=== PATIENT | female | born 1955 | race African-American/Black ===

== ENCOUNTER 2020-01-15 11:29 | Inpatient (IN) | payer MEDICARE, OTHER ==
[~2020-01-15] VITALS: Ht 170.2 cm; Wt 58.2 kg
[2020-01-15] MEDS ORDERED: PANTOPRAZOLE 80 MG in SODIUM CHLORIDE 0.9% 100 ML IV STA (11:55)
[2020-01-15] MEDS ORDERED: PANTOPRAZOLE SODIUM 40 MG/VIAL IV STA (11:55)
[2020-01-15] MEDS ORDERED: SODIUM CHLORIDE 0.9% 1000ML BAG (SEPSIS BOLUS) IV ONE (12:00)
[2020-01-15 12:29] LABS: MEAN CORPUSCULAR HEMOGLOBIN 31.8 pg (28.0-32.0); MEAN CORPUSCULAR VOLUME 108.7 fL (81.0-99.0); MEAN PLATELET VOLUME 9.7 fl (7.4-10.4); PLATELET 166 x1000/uL (130-400); RED BLOOD CELL COUNT 0.71 mill/uL (4.2-5.4); RED CELL DISTRIBUTION WIDTH 18.8 % (11.6-14.6)
[2020-01-15 12:38] LABS: CHLORIDE 119 mEq/L (98-107); HEMATOCRIT. 7.7 % (36.0-48.0); HEMOGLOBIN. 2.2 g/dL (12.0-16.0); INR 1.1; PROTHROMBIN TIME 12.2 sec (9.6-11.0)
[2020-01-15 12:57] LABS: NUCLEATED RED BLOOD CELLS 6 /100 WBC; PLATELET ESTIMATE NORMAL
[2020-01-15 13:13] LABS: CLARITY URINE TURBID (CLEAR); COLOR URINE YELLOW (YELLOW); KETONES URINE NEGATIVE (NEGATIVE); LEUKOCYTE ESTERASE URINE 3+ (NEGATIVE); NITRITE URINE NEGATIVE (NEGATIVE); OCCULT BLOOD URINE 3+ (NEGATIVE); PROTEIN URINE 2+ (NEGATIVE); SPECIFIC GRAVITY URINE 1.014 (1.005-1.030); UROBILINOGEN URINE 0.2 E.U./dL (0.2-1.0)
[2020-01-15] MEDS ORDERED: CALCIUM CHLORIDE 1GM/10ML SYR IV SCH (14:00)
[2020-01-15] MEDS ORDERED: DEXTROSE 50% WATER 50ML SYRINGE IV SCH (14:00)
[2020-01-15] MEDS ORDERED: INSULIN REGULAR (HUMULIN R) 300UNITS/3ML IV SCH (14:00)
[2020-01-15] MEDS ORDERED: PIPERACILLIN/TAZ 3.375G PREMIX 50 ML IV SCH (14:00)
[2020-01-15] MEDS ORDERED: SODIUM BICARBONATE 8.4% 1 MEQ/ML 50ML SYR IV SCH (14:00)
[2020-01-15] MEDS ORDERED: DOCUSATE SODIUM 100MG CAPSULE PO PRN (14:15)
[2020-01-15] MEDS ORDERED: MORPHINE SULFATE 2 MG/ML CPJ (NOT FOR IM USE) IV PRN (14:15)
[2020-01-15] MEDS ORDERED: ONDANSETRON HCL 4MG/2ML INJ IV PRN (14:15)
[2020-01-15] MEDS ORDERED: ACETAMINOPHEN 325MG TABLET PO PRN (14:15)
[2020-01-15] MEDS ORDERED: GUAIFENESIN 200MG/10ML SUGAR FREE UDC PO PRN (14:15)
[2020-01-15] MEDS ORDERED: MAGNESIUM/ALUMINUM HYDROXIDE/SIMETHICONE 30ML UDC PO PRN (14:15)
[2020-01-15] MEDS ORDERED: DIPHENHYDRAMINE 50MG/ML VIAL IV PRN (14:15)
[2020-01-15] MEDS ORDERED: IPRATROPIUM/ALBUTEROL 0.5-3(2.5)MG/3ML NEB NEB PRN (14:15)
[2020-01-15] MEDS ORDERED: LORAZEPAM 2MG/ML CPJ IV PRN (14:15)
[2020-01-15] MEDS ORDERED: HYDROCODONE/ACETAMINOPHEN 5/325MG TABLET PO PRN (14:15)
[2020-01-15 15:25] LABS: BG BASE EXCESS -12.3 mmol/L (-2.0-2.0); BG CARBOXYHEMOGLOBIN 0.1 % (0.5-1.5); BG DEOXYHEMOGLOBIN 2.6 % (0.0-5.0); BG HCO3 ACT 13.4 mmol/L (22.0-26.0); BG METHEMOGLOBIN 0.3 % (0.0-1.5); BG OXYGEN SATURATION 97.4 % (92.0-98.5); BG PCO2 29.7 mmHg (35.0-45.0); BG PH 7.273 (7.350-7.450); BG PO2 113.6 mmHg (75.0-100.0); BG SAMPLE SITE RIGHT RADIAL; BG TOTAL HEMOGLOBIN 6.8 g/dL (12.0-18.0); BG VENT MODE NASAL CANNULA
[2020-01-15] MEDS ORDERED: DEXT 5%/0.45% NACL 1000ML 1,000 ML IV SCH (17:51)
[2020-01-15] MEDS ORDERED: NA PHOS,M-B/NA PHOS,DI-BA ENEMA 118ML PR PRN (18:04)
[2020-01-15 22:02] LABS: HEMATOCRIT 35.9 % (36.0-48.0); HEMOGLOBIN 11.9 g/dL (12.0-16.0); MEAN CORPUSCULAR HEMOGLOBIN 30.9 pg (28.0-32.0); PLATELET 82 x1000/uL (130-400); RED BLOOD CELL COUNT 3.86 mill/uL (4.2-5.4); RED CELL DISTRIBUTION WIDTH 14.8 % (11.6-14.6)
[2020-01-16] MEDS: CLONIDINE 0.1MG TABLET PO PRN ×3 (01:21→23:38)
[2020-01-16 04:19] LABS: HEMATOCRIT. 30.3 % (36.0-48.0); HEMOGLOBIN. 10.3 g/dL (12.0-16.0); MEAN CORPUSCULAR HEMOGLOBIN 30.7 pg (28.0-32.0); MEAN CORPUSCULAR VOLUME 90.3 fL (81.0-99.0); PLATELET 79 x1000/uL (130-400); RED BLOOD CELL COUNT 3.35 mill/uL (4.2-5.4); RED CELL DISTRIBUTION WIDTH 15.3 % (11.6-14.6)
[2020-01-16 04:27] LABS: CHLORIDE 124 mEq/L (98-107)
[2020-01-16 04:37] LABS: HDL CHOLESTEROL 21 mg/dL (40-59); LDL CHOLESTEROL 34 mg/dL (5-100)
[2020-01-16 04:39] LABS: T4 FREE 0.69 ng/dL (0.76-1.46)
[2020-01-16] MEDS ORDERED: ENOXAPARIN 60MG/0.6ML SYR SUBCUT ONE (05:00)
[2020-01-16] MEDS ORDERED: ASPIRIN 325MG TABLET PO NR (05:00)
[2020-01-16] MEDS ORDERED: SODIUM POLYSTYRENE SULFONATE 15 G/60 ML BOT PO NR (05:17)
[2020-01-16] MEDS ORDERED: SODIUM BICARBONATE 8.4% 1 MEQ/ML 50ML SYR IV NR (05:17)
[2020-01-16] MEDS ORDERED: INSULIN REGULAR (HUMULIN R) 300UNITS/3ML IV NR (05:17)
[2020-01-16] MEDS ORDERED: DEXTROSE 50% WATER 50ML SYRINGE IV NR (05:17)
[2020-01-16 06:59] LABS: NUCLEATED RED BLOOD CELLS 3 /100 WBC; PLATELET ESTIMATE DECREASED
[2020-01-16] MEDS ORDERED: SODIUM BICARBONATE 100 MEQ in DEXTROSE 5% WATER 1,000 ML IV SCH ×2 (08:00→23:00)
[2020-01-16] MEDS: PANTOPRAZOLE 40MG DR TABLET PO SCH ×2 (08:32→21:11)
[2020-01-16] MEDS: LEVOTHYROXINE SODIUM 50MCG TABLET PO SCH (08:32)
[2020-01-16 09:08] LABS: BG BASE EXCESS -10.1 mmol/L (-2.0-2.0); BG CARBOXYHEMOGLOBIN 0.9 % (0.5-1.5); BG FRACTION INSPIRED OXYGEN 32; BG HCO3 ACT 13.5 mmol/L (22.0-26.0); BG METHEMOGLOBIN 0.7 % (0.0-1.5); BG OXYHEMOGLOBIN 96.4 % (94.0-97.0); BG PCO2 25.3 mmHg (35.0-45.0); BG PH 7.346 (7.350-7.450); BG PO2 142.1 mmHg (75.0-100.0); BG SAMPLE SITE RIGHT RADIAL; BG TOTAL HEMOGLOBIN 6.4 g/dL (12.0-18.0); BG VENT MODE NASAL CANNULA
[2020-01-16 12:25] VITALS: BP 166/83
[2020-01-16 13:04] VITALS: BP 163/85
[2020-01-16 14:00] VITALS: BP 176/61
[2020-01-16] MEDS ORDERED: AMLO5TAB4 PO (15:35)
[2020-01-16] MEDS ORDERED: TELM20TA8 PO (15:35)
[2020-01-16] MEDS ORDERED: PRED25PO13 PO (15:40)
[2020-01-16 18:00] VITALS: BP 134/72
[2020-01-16 20:00] VITALS: BP 182/86
[2020-01-16] MEDS: ATORVASTATIN CALCIUM 40MG TABLET PO SCH ×2 (21:00→21:11)
[2020-01-16 22:00] VITALS: BP 187/91
[2020-01-17] VITALS (11 sets, daily range): BP systolic 147–190; BP diastolic 74–93
[2020-01-17] MEDS: SODIUM BICARBONATE 100 MEQ in DEXTROSE 5% WATER 1,000 ML IV SCH ×2 (02:02→21:10)
[2020-01-17] MEDS: CLONIDINE 0.1MG TABLET PO PRN (05:09)
[2020-01-17] MEDS: PANTOPRAZOLE 40MG DR TABLET PO SCH (08:06)
[2020-01-17] MEDS: LEVOTHYROXINE SODIUM 50MCG TABLET PO SCH (08:06)
[2020-01-17 10:27] LABS: BASOPHILS % 0.6 % (0.0-2.0); EOSINOPHILS % 0.5 % (0.0-5.0); HEMATOCRIT. 25.4 % (36.0-48.0); HEMOGLOBIN. 8.8 g/dL (12.0-16.0); LYMPHOCYTES % 7.2 % (20.0-50.0); MEAN CORPUSCULAR HEMOGLOBIN 31.4 pg (28.0-32.0); MEAN CORPUSCULAR VOLUME 90.6 fL (81.0-99.0); MEAN PLATELET VOLUME 9.2 fl (7.4-10.4); MONOCYTES % 5.3 % (2.0-8.0); NEUTROPHILS % 86.4 % (40.0-76.0); PLATELET 56 x1000/uL (130-400); RED BLOOD CELL COUNT 2.81 mill/uL (4.2-5.4); RED CELL DISTRIBUTION WIDTH 16.2 % (11.6-14.6)
[2020-01-17 17:12] LABS: CREATINE KINASE 69 IU/L (26-192)
[2020-01-17] MEDS: ATORVASTATIN CALCIUM 40MG TABLET PO SCH (21:00)
[2020-01-17] MEDS: PANTOPRAZOLE SODIUM 40 MG/VIAL IV SCH (21:12)
[2020-01-18] VITALS (21 sets, daily range): BP systolic 98–179; BP diastolic 50–75
[2020-01-18 08:25] LABS: PROTHROMBIN TIME 10.7 sec (9.6-11.0)
[2020-01-18 08:27] LABS: HEMATOCRIT. 21.5 % (36.0-48.0); HEMOGLOBIN. 7.4 g/dL (12.0-16.0); MEAN CORPUSCULAR HEMOGLOBIN 31.4 pg (28.0-32.0); MEAN CORPUSCULAR VOLUME 91.3 fL (81.0-99.0); RED BLOOD CELL COUNT 2.36 mill/uL (4.2-5.4); RED CELL DISTRIBUTION WIDTH 15.9 % (11.6-14.6)
[2020-01-18 08:46] LABS: PLATELET 46 x1000/uL (130-400)
[2020-01-18] MEDS: LEVOTHYROXINE SODIUM 50MCG TABLET PO SCH (08:52)
[2020-01-18] MEDS: PANTOPRAZOLE SODIUM 40 MG/VIAL IV SCH ×2 (08:52→20:34)
[2020-01-18 15:58] LABS: PLATELET ESTIMATE MARKEDLY DECREASED
[2020-01-18] MEDS: SUCRALFATE 1G TABLET PO SCH ×2 (19:03→20:34)
[2020-01-18 19:52] LABS: HEMATOCRIT 26.3 % (36.0-48.0); HEMOGLOBIN 8.8 g/dL (12.0-16.0)
[2020-01-18] MEDS: ATORVASTATIN CALCIUM 40MG TABLET PO SCH (20:35)
[2020-01-19] VITALS (14 sets, daily range): BP systolic 104–158; BP diastolic 27–93
[2020-01-19] MEDS: SUCRALFATE 1G TABLET PO SCH ×4 (06:31→20:37)
[2020-01-19] MEDS: LEVOTHYROXINE SODIUM 50MCG TABLET PO SCH (06:31)
[2020-01-19 07:41] LABS: HEMATOCRIT. 23.2 % (36.0-48.0); HEMOGLOBIN. 8.2 g/dL (12.0-16.0); MEAN CORPUSCULAR VOLUME 88.2 fL (81.0-99.0); MEAN PLATELET VOLUME 9.4 fl (7.4-10.4); PLATELET 56 x1000/uL (130-400); RED BLOOD CELL COUNT 2.63 mill/uL (4.2-5.4)
[2020-01-19 07:45] LABS: HEPATITIS B SURFACE ANTIGEN NEGATIVE
[2020-01-19 07:52] LABS: FOLIC ACID (FOLATE) SERUM 19.8 ng/mL (>5.38)
[2020-01-19 08:15] LABS: HEPATITIS A AB IGM NEGATIVE (NEGATIVE)
[2020-01-19] MEDS: CYANOCOBALAMIN 1000MCG TABLET PO SCH (08:34)
[2020-01-19] MEDS ORDERED: MIDAZOLAM HCL 5 MG/5 ML VIAL ONE (09:34)
[2020-01-19] MEDS ORDERED: FENTANYL CITRATE/PF 50MCG/ML 2ML VIAL ONE (09:34)
[2020-01-19] MEDS ORDERED: MIDAZOLAM HCL 5 MG/5 ML VIAL IV SCH (09:46)
[2020-01-19] MEDS ORDERED: FENTANYL CITRATE/PF 50MCG/ML 2ML VIAL IV SCH (09:47)
[2020-01-19] MEDS ORDERED: SIMETHICONE 40 MG/0.6 ML 30ML ONE (09:57)
[2020-01-19] MEDS ORDERED: OMEPRAZOLE 20MG CAPSULE EXTENDED RELEASE PO SCH (10:30)
[2020-01-19 11:55] LABS: PLATELET ESTIMATE DECREASED
[2020-01-19] MEDS: DEXTROSE 5% WATER 1,000 ML IV SCH (14:46)
[2020-01-19] MEDS: CLONIDINE 0.1MG TABLET PO PRN (18:54)
[2020-01-19] MEDS: ATORVASTATIN CALCIUM 40MG TABLET PO SCH (20:36)
[2020-01-20] VITALS (7 sets, daily range): BP systolic 118–161; BP diastolic 65–92
[2020-01-20] MEDS: DEXTROSE 5% WATER 1,000 ML IV SCH ×2 (00:56→21:00)
[2020-01-20] MEDS: SUCRALFATE 1G TABLET PO SCH ×4 (06:31→20:58)
[2020-01-20] MEDS: OMEPRAZOLE 20MG CAPSULE EXTENDED RELEASE PO SCH (06:31)
[2020-01-20] MEDS: LEVOTHYROXINE SODIUM 50MCG TABLET PO SCH (06:31)
[2020-01-20 06:40] LABS: BASOPHILS % 0.6 % (0.0-2.0); EOSINOPHILS % 1.1 % (0.0-5.0); HEMATOCRIT. 21.2 % (36.0-48.0); HEMOGLOBIN. 7.4 g/dL (12.0-16.0); LYMPHOCYTES % 12.9 % (20.0-50.0); MEAN CORPUSCULAR VOLUME 89.2 fL (81.0-99.0); MONOCYTES % 6.3 % (2.0-8.0); NEUTROPHILS % 79.1 % (40.0-76.0); PLATELET 62 x1000/uL (130-400); RED BLOOD CELL COUNT 2.38 mill/uL (4.2-5.4); RED CELL DISTRIBUTION WIDTH 15.3 % (11.6-14.6)
[2020-01-20] MEDS: CYANOCOBALAMIN 1000MCG TABLET PO SCH (08:47)
[2020-01-20] MEDS: ATORVASTATIN CALCIUM 40MG TABLET PO SCH (21:00)
[2020-01-21] VITALS (15 sets, daily range): BP systolic 134–162; BP diastolic 65–89
[2020-01-21 05:09] LABS: ANA IFA Negative (.)
[2020-01-21] MEDS: LEVOTHYROXINE SODIUM 50MCG TABLET PO SCH (06:30)
[2020-01-21] MEDS: OMEPRAZOLE 20MG CAPSULE EXTENDED RELEASE PO SCH (06:30)
[2020-01-21] MEDS: SUCRALFATE 1G TABLET PO SCH ×3 (06:30→21:00)
[2020-01-21 07:26] LABS: BASOPHILS % 0.5 % (0.0-2.0); EOSINOPHILS % 0.9 % (0.0-5.0); HEMOGLOBIN. 7.1 g/dL (12.0-16.0); LYMPHOCYTES % 13.9 % (20.0-50.0); MEAN CORPUSCULAR HEMOGLOBIN 30.9 pg (28.0-32.0); MEAN CORPUSCULAR VOLUME 89.7 fL (81.0-99.0); MEAN PLATELET VOLUME 9.9 fl (7.4-10.4); MONOCYTES % 9.9 % (2.0-8.0); NEUTROPHILS % 74.8 % (40.0-76.0); PLATELET 73 x1000/uL (130-400); RED CELL DISTRIBUTION WIDTH 14.8 % (11.6-14.6)
[2020-01-21 08:05] LABS: HEMATOCRIT. 20.7 % (36.0-48.0)
[2020-01-21] MEDS: CYANOCOBALAMIN 1000MCG TABLET PO SCH (08:52)
[2020-01-21] MEDS: CLONIDINE 0.1MG TABLET PO PRN (08:57)
[2020-01-21 17:23] LABS: BASOPHILS % 0.5 % (0.0-2.0); EOSINOPHILS % 0.8 % (0.0-5.0); HEMATOCRIT. 26.1 % (36.0-48.0); LYMPHOCYTES % 16.5 % (20.0-50.0); MEAN CORPUSCULAR HEMOGLOBIN 30.8 pg (28.0-32.0); MEAN CORPUSCULAR VOLUME 89.6 fL (81.0-99.0); MEAN PLATELET VOLUME 9.3 fl (7.4-10.4); NEUTROPHILS % 69.2 % (40.0-76.0); PLATELET 75 x1000/uL (130-400); RED BLOOD CELL COUNT 2.92 mill/uL (4.2-5.4); RED CELL DISTRIBUTION WIDTH 14.8 % (11.6-14.6)
[2020-01-21 17:29] LABS: INR 0.9
[2020-01-21] MEDS: ATORVASTATIN CALCIUM 40MG TABLET PO SCH (23:04)
[2020-01-22] VITALS (12 sets, daily range): BP systolic 110–169; BP diastolic 51–98
[2020-01-22] MEDS: LEVOTHYROXINE SODIUM 50MCG TABLET PO SCH (06:27)
[2020-01-22] MEDS: SUCRALFATE 1G TABLET PO SCH ×4 (06:31→20:36)
[2020-01-22] MEDS: OMEPRAZOLE 20MG CAPSULE EXTENDED RELEASE PO SCH (06:32)
[2020-01-22] MEDS: CYANOCOBALAMIN 1000MCG TABLET PO SCH (08:33)
[2020-01-22 09:24] LABS: BASOPHILS % 0.2 % (0.0-2.0); HEMOGLOBIN. 8.6 g/dL (12.0-16.0); LYMPHOCYTES % 12.3 % (20.0-50.0); MEAN CORPUSCULAR HEMOGLOBIN 30.5 pg (28.0-32.0); MEAN CORPUSCULAR VOLUME 89.1 fL (81.0-99.0); MEAN PLATELET VOLUME 10.3 fl (7.4-10.4); MONOCYTES % 9.9 % (2.0-8.0); NEUTROPHILS % 76.6 % (40.0-76.0); PLATELET 87 x1000/uL (130-400); RED BLOOD CELL COUNT 2.81 mill/uL (4.2-5.4); RED CELL DISTRIBUTION WIDTH 14.6 % (11.6-14.6)
[2020-01-22] MEDS: CLONIDINE 0.1MG TABLET PO PRN (10:27)
[2020-01-22] MEDS ORDERED: AMLODIPINE 5MG TABLET PO NR (12:45)
[2020-01-22] MEDS: AMLODIPINE 5MG TABLET PO SCH (20:36)
[2020-01-22] MEDS: ATORVASTATIN CALCIUM 40MG TABLET PO SCH (20:39)
[2020-01-23] VITALS (10 sets, daily range): BP systolic 118–172; BP diastolic 57–96
[2020-01-23] MEDS: LEVOTHYROXINE SODIUM 50MCG TABLET PO SCH (06:26)
[2020-01-23] MEDS: OMEPRAZOLE 20MG CAPSULE EXTENDED RELEASE PO SCH (06:26)
[2020-01-23] MEDS: SUCRALFATE 1G TABLET PO SCH ×3 (06:27→17:34)
[2020-01-23 06:36] LABS: BASOPHILS % 0.2 % (0.0-2.0); EOSINOPHILS % 1.3 % (0.0-5.0); HEMATOCRIT. 25.1 % (36.0-48.0); HEMOGLOBIN. 8.8 g/dL (12.0-16.0); LYMPHOCYTES % 15.4 % (20.0-50.0); MEAN CORPUSCULAR HEMOGLOBIN 31.2 pg (28.0-32.0); MEAN CORPUSCULAR VOLUME 88.8 fL (81.0-99.0); MEAN PLATELET VOLUME 9.7 fl (7.4-10.4); MONOCYTES % 12.6 % (2.0-8.0); NEUTROPHILS % 70.5 % (40.0-76.0); PLATELET 103 x1000/uL (130-400); RED BLOOD CELL COUNT 2.82 mill/uL (4.2-5.4); RED CELL DISTRIBUTION WIDTH 14.8 % (11.6-14.6)
[2020-01-23] MEDS: AMLODIPINE 5MG TABLET PO SCH (08:14)
[2020-01-23] MEDS ORDERED: HYDRALAZINE HCL 50MG TABLET PO SCH (21:00)
== END 2020-01-23 18:26 | disposition home health service (06) | DRG 871 ==
LOC: ER 11:45 → 5EST 13:05 → EDBEDREQ 13:11 → EDBEDREQSVC 13:11 → ENRESERV 01-16 11:50 → 5EST 01-17 09:26 → 3WST 01-21 11:33
PROVIDERS: ADMIT Internal Medicine; ATTEND Internal Medicine
PROC: 30233N1 Transfusion of Nonautologous Red Blood Cells into Peripheral Vein, Percutaneous Approach (ICD-10-PCS; 2020-01-15)
PROC: 30233R1 Transfusion of Nonautologous Platelets into Peripheral Vein, Percutaneous Approach (ICD-10-PCS; 2020-01-18)
PROC: 0DB68ZX Excision of Stomach, Via Natural or Artificial Opening Endoscopic, Diagnostic (ICD-10-PCS; principal; 2020-01-19)
DX: A41.9 Sepsis, unspecified organism (principal); N18.6 End stage renal disease; E43 Unspecified severe protein-calorie malnutrition; K26.4 Chronic or unspecified duodenal ulcer with hemorrhage; N17.0 Acute kidney failure with tubular necrosis; I21.A1 Myocardial infarction type 2; D62 Acute posthemorrhagic anemia; G93.40 Encephalopathy, unspecified; E87.2 Acidosis; N13.6 Pyonephrosis; I12.0 Hypertensive chronic kidney disease with stage 5 chronic kidney disease or end stage renal disease; E87.0 Hyperosmolality and hypernatremia; E86.0 Dehydration; M32.9 Systemic lupus erythematosus, unspecified; E87.5 Hyperkalemia; D69.6 Thrombocytopenia, unspecified; D53.9 Nutritional anemia, unspecified; E03.9 Hypothyroidism, unspecified; E78.5 Hyperlipidemia, unspecified; I25.10 Atherosclerotic heart disease of native coronary artery without angina pectoris; E11.22 Type 2 diabetes mellitus with diabetic chronic kidney disease; K75.9 Inflammatory liver disease, unspecified; M19.90 Unspecified osteoarthritis, unspecified site; Z53.29 Procedure and treatment not carried out because of patient's decision for other reasons; R59.0 Localized enlarged lymph nodes; K57.90 Diverticulosis of intestine, part unspecified, without perforation or abscess without bleeding; M06.9 Rheumatoid arthritis, unspecified; Z87.442 Personal history of urinary calculi; Z79.52 Long term (current) use of systemic steroids; Z68.20 Body mass index [BMI] 20.0-20.9, adult
CPT/HCPCS: 36415; 36600; 71045; 74176; 76700; 76770; 80048; 80053; 80061; 80076; 81003; 82150; 82270; 82375; 82550; 82575; 82607; 82728; 82746; 82805; 83010; 83036; 83540; 83550; 83605; 83615; 83880; 84132; 84145; 84439; 84443; 84484; 85014; 85018; 85025; 85027; 85384; 86256; 86677; 86705; 86709; 86803; 86850; 86880; 86900; 86920; 87340; 88305; 88312; 88313; 93005; 93306; 97116; 97162; 97530; 99291; C9113; J1815; J2250; J2543; J3010; J3490; J7030; J7050; J7070; P9016; P9034

== ENCOUNTER 2020-03-27 14:11 | Inpatient (IN) | payer MEDICARE, OTHER ==
[~2020-03-27] VITALS: Ht 160 cm; Wt 56.8 kg
[~2020-03-27 14:11] MED LIST: AMLO5TAB4 PO; PRED25PO13 PO; TELM20TA8 PO
[2020-03-27] MEDS ORDERED: SODIUM CHLORIDE 0.9% 1,000 ML IV ONE (14:58)
[2020-03-27] MEDS ORDERED: MORPHINE SULFATE 4 MG/ML CPJ (NOT FOR IM USE) IV STA (14:58)
[2020-03-27] MEDS ORDERED: ONDANSETRON HCL 4MG/2ML INJ IV STA (14:58)
[2020-03-27 15:54] LABS: HEMATOCRIT. 28.8 % (36.0-48.0); HEMOGLOBIN. 9.2 g/dL (12.0-16.0); MEAN CORPUSCULAR HEMOGLOBIN 28.5 pg (28.0-32.0); MEAN PLATELET VOLUME 8.7 fl (7.4-10.4); PLATELET 213 x1000/uL (130-400); RED BLOOD CELL COUNT 3.24 mill/uL (4.2-5.4); RED CELL DISTRIBUTION WIDTH 16.3 % (11.6-14.6)
[2020-03-27 15:58] LABS: CHLORIDE 92 mEq/L (98-107)
[2020-03-27 16:02] LABS: PARTIAL THROMBOPLASTIN TIME 37.9 sec (23.4-31.0); PROTHROMBIN TIME 10.9 sec (9.6-11.0)
[2020-03-27 16:24] LABS: PLATELET ESTIMATE NORMAL
[2020-03-27] MEDS ORDERED: METRONIDAZOLE 500 MG PREMIX 100 ML IV ONE (16:45)
[2020-03-27] MEDS ORDERED: LEVOFLOXACIN 750MG PREMIX 150 ML IV ONE (16:45)
[2020-03-27] MEDS ORDERED: CALCIUM GLUCONATE 1,000 MG in DEXTROSE 5% WATER 50 ML IV ONE (17:15)
[2020-03-27] MEDS ORDERED: ALBUTEROL (0.083%) 2.5MG/3ML NEB HHN ONE (17:15)
[2020-03-27] MEDS ORDERED: SODIUM BICARBONATE 8.4% 1 MEQ/ML 50ML SYR IV ONE (17:15)
[2020-03-27] MEDS ORDERED: SODIUM POLYSTYRENE SULFONATE 15 G/60 ML BOT PO ONE (17:15)
[2020-03-27] MEDS ORDERED: DEXTROSE 50% WATER 50ML SYRINGE IV ONE (17:15)
[2020-03-27] MEDS ORDERED: ONDANSETRON HCL 4MG/2ML INJ IV PRN (21:15)
[2020-03-27] MEDS ORDERED: CEFTRIAXONE 1 G PREMIX 50 ML IV SCH (21:15)
[2020-03-27] MEDS ORDERED: SODIUM CHLORIDE 0.9% 1,000 ML IV SCH (21:15)
[2020-03-27] MEDS ORDERED: SODIUM BICARBONATE 150 MEQ in SODIUM CHLORIDE 0.45% 1,000 ML IV SCH (22:00)
[2020-03-27] MEDS ORDERED: PREDNISONE 20MG TABLET PO SCH (22:30)
[2020-03-27 23:00] VITALS: BP 149/71
[2020-03-27] MEDS ORDERED: DEXTROSE 50% WATER 50ML SYRINGE IV PRN (23:15)
[2020-03-27] MEDS: PANTOPRAZOLE SODIUM 40 MG/VIAL IV SCH (23:31)
[2020-03-27] MEDS: SODIUM BICARBONATE 150 MEQ in SODIUM CHLORIDE 0.45% 1,000 ML IV SCH (23:31)
[2020-03-27] MEDS: HYDROCORTISONE SOD SUCCINATE 100 MG/2 ML VIAL IV SCH (23:32)
[2020-03-28] VITALS (21 sets, daily range): BP systolic 127–165; BP diastolic 61–83
[2020-03-28] MEDS: MORPHINE SULFATE 2 MG/ML CPJ (NOT FOR IM USE) IV PRN ×2 (00:31→03:41)
[2020-03-28] MEDS ORDERED: DILTIAZEM HCL 5MG/ML 5ML VIAL IV PRN (04:45)
[2020-03-28] MEDS: METRONIDAZOLE 500 MG PREMIX 100 ML IV SCH ×2 (05:30→18:33)
[2020-03-28] MEDS ORDERED: METRONIDAZOLE 500 MG PREMIX 100 ML IV SCH (06:00)
[2020-03-28 07:24] LABS: CLARITY URINE CLOUDY (CLEAR); COLOR URINE YELLOW (YELLOW); KETONES URINE NEGATIVE (NEGATIVE); LEUKOCYTE ESTERASE URINE 1+ (NEGATIVE); NITRITE URINE NEGATIVE (NEGATIVE); OCCULT BLOOD URINE 2+ (NEGATIVE); PH URINE 5.5 (4.5-8.0); PROTEIN URINE 3+ (NEGATIVE); SPECIFIC GRAVITY URINE 1.015 (1.005-1.030); UROBILINOGEN URINE 0.2 E.U./dL (0.2-1.0)
[2020-03-28 07:43] LABS: MEAN CORPUSCULAR HEMOGLOBIN 29.2 pg (28.0-32.0); MEAN CORPUSCULAR VOLUME 86.4 fL (81.0-99.0); MEAN PLATELET VOLUME 8.6 fl (7.4-10.4); PLATELET 143 x1000/uL (130-400); RED BLOOD CELL COUNT 2.23 mill/uL (4.2-5.4); RED CELL DISTRIBUTION WIDTH 16.4 % (11.6-14.6)
[2020-03-28 08:02] LABS: HEMATOCRIT. 19.2 % (36.0-48.0); HEMOGLOBIN. 6.5 g/dL (12.0-16.0)
[2020-03-28] MEDS ORDERED: CEFTRIAXONE 1,000 MG in DEXTROSE 5% WATER 50 ML IV SCH (09:00)
[2020-03-28] MEDS: SODIUM BICARBONATE 150 MEQ in SODIUM CHLORIDE 0.45% 1,000 ML IV SCH ×2 (09:13→22:32)
[2020-03-28] MEDS: CEFTRIAXONE 1,000 MG in DEXTROSE 5% WATER 50 ML IV SCH (09:14)
[2020-03-28] MEDS: PANTOPRAZOLE SODIUM 40 MG/VIAL IV SCH (09:14)
[2020-03-28 10:29] LABS: T4 FREE 0.96 ng/dL (0.76-1.46)
[2020-03-28 14:14] LABS: PLATELET ESTIMATE NORMAL
[2020-03-28 14:47] LABS: CREATINE KINASE 57 IU/L (26-192)
[2020-03-28 14:48] LABS: CREATINE KINASE MB FRACTION 1.5 ng/mL (0.5-3.6)
[2020-03-29] VITALS (13 sets, daily range): BP systolic 121–152; BP diastolic 56–90
[2020-03-29] MEDS: HYDROCORTISONE SOD SUCCINATE 100 MG/2 ML VIAL IV SCH ×2 (00:37→23:35)
[2020-03-29] MEDS: METRONIDAZOLE 500 MG PREMIX 100 ML IV SCH ×2 (06:06→18:54)
[2020-03-29 07:11] LABS: CREATINE KINASE MB FRACTION 1.1 ng/mL (0.5-3.6)
[2020-03-29] MEDS: PANTOPRAZOLE SODIUM 40 MG/VIAL IV SCH (08:55)
[2020-03-29] MEDS: CEFTRIAXONE 1,000 MG in DEXTROSE 5% WATER 50 ML IV SCH (08:55)
[2020-03-29 10:09] LABS: HEMATOCRIT. 24.9 % (36.0-48.0); HEMOGLOBIN. 8.6 g/dL (12.0-16.0); MEAN CORPUSCULAR HEMOGLOBIN 29.8 pg (28.0-32.0); MEAN CORPUSCULAR VOLUME 86.1 fL (81.0-99.0); MEAN PLATELET VOLUME 8.7 fl (7.4-10.4); PLATELET 159 x1000/uL (130-400); RED CELL DISTRIBUTION WIDTH 16.1 % (11.6-14.6)
[2020-03-29 10:14] LABS: CHLORIDE 97 mEq/L (98-107)
[2020-03-29] MEDS ORDERED: CALCIUM CHLORIDE 1GM/10ML SYR IV NR (11:15)
[2020-03-29] MEDS ORDERED: POTASSIUM CHLORIDE 20MEQ TABLET SR PO NR (11:30)
[2020-03-29] MEDS: SODIUM BICARBONATE 150 MEQ in SODIUM CHLORIDE 0.45% 1,000 ML IV SCH ×2 (11:48→21:00)
[2020-03-29 12:40] LABS: PLATELET ESTIMATE NORMAL
[2020-03-29] MEDS ORDERED: CALCIUM GLUCONATE 100MG/ML 10ML VIAL IV NR (13:00)
[2020-03-30] VITALS (12 sets, daily range): BP systolic 89–160; BP diastolic 24–87
[2020-03-30] MEDS: SODIUM BICARBONATE 150 MEQ in SODIUM CHLORIDE 0.45% 1,000 ML IV SCH ×2 (03:00→16:24)
[2020-03-30] MEDS: METRONIDAZOLE 500 MG PREMIX 100 ML IV SCH ×2 (05:09→17:00)
[2020-03-30 06:26] LABS: HEMATOCRIT. 27.4 % (36.0-48.0); HEMOGLOBIN. 9.3 g/dL (12.0-16.0); MEAN CORPUSCULAR HEMOGLOBIN 29.3 pg (28.0-32.0); MEAN CORPUSCULAR VOLUME 85.7 fL (81.0-99.0); MEAN PLATELET VOLUME 8.7 fl (7.4-10.4); PLATELET 178 x1000/uL (130-400); RED BLOOD CELL COUNT 3.19 mill/uL (4.2-5.4); RED CELL DISTRIBUTION WIDTH 15.8 % (11.6-14.6)
[2020-03-30] MEDS: PANTOPRAZOLE SODIUM 40 MG/VIAL IV SCH (08:33)
[2020-03-30] MEDS: CEFTRIAXONE 1,000 MG in DEXTROSE 5% WATER 50 ML IV SCH (08:35)
[2020-03-30] MEDS ORDERED: DOCUSATE SODIUM 250MG CAPSULE PO PRN (10:00)
[2020-03-30] MEDS ORDERED: POTASSIUM CHLORIDE 20MEQ TABLET SR PO SCH (11:15)
[2020-03-30] MEDS: HYDRALAZINE 20MG/ML VIAL IV PRN (11:26)
[2020-03-30 15:22] LABS: PLATELET ESTIMATE NORMAL
[2020-03-31] VITALS (12 sets, daily range): BP systolic 126–176; BP diastolic 62–111
[2020-03-31] MEDS: HYDROCORTISONE SOD SUCCINATE 100 MG/2 ML VIAL IV SCH ×2 (00:25→22:18)
[2020-03-31] MEDS: HYDRALAZINE 20MG/ML VIAL IV PRN (02:09)
[2020-03-31] MEDS: SODIUM BICARBONATE 150 MEQ in SODIUM CHLORIDE 0.45% 1,000 ML IV SCH ×2 (03:58→10:46)
[2020-03-31] MEDS: METRONIDAZOLE 500 MG PREMIX 100 ML IV SCH ×2 (05:33→17:28)
[2020-03-31 07:13] LABS: HEMOGLOBIN. 9.7 g/dL (12.0-16.0); MEAN CORPUSCULAR HEMOGLOBIN 29.1 pg (28.0-32.0); MEAN CORPUSCULAR VOLUME 86.6 fL (81.0-99.0); MEAN PLATELET VOLUME 8.7 fl (7.4-10.4); PLATELET 175 x1000/uL (130-400); RED BLOOD CELL COUNT 3.35 mill/uL (4.2-5.4); RED CELL DISTRIBUTION WIDTH 16.3 % (11.6-14.6)
[2020-03-31 07:19] LABS: CHLORIDE 92 mEq/L (98-107)
[2020-03-31 08:02] LABS: PHOSPHORUS 10.3 mg/dL (2.5-4.9)
[2020-03-31] MEDS: CEFTRIAXONE 1,000 MG in DEXTROSE 5% WATER 50 ML IV SCH (08:11)
[2020-03-31] MEDS: PANTOPRAZOLE SODIUM 40 MG/VIAL IV SCH (08:11)
[2020-03-31] MEDS ORDERED: POTASSIUM CHLORIDE 20MEQ TABLET SR PO NR (08:51)
[2020-03-31] MEDS: CALCIUM ACETATE 667MG CAPSULE PO SCH ×3 (09:12→17:29)
[2020-03-31] MEDS ORDERED: POTASSIUM CHLORIDE INJ 40 MEQ in DEXT 5% WATER 250 ML IV NR (10:00)
[2020-03-31 14:29] LABS: PLATELET ESTIMATE NORMAL
[2020-04-01] VITALS (12 sets, daily range): BP systolic 137–177; BP diastolic 58–103
[2020-04-01] MEDS: HYDRALAZINE 20MG/ML VIAL IV PRN ×4 (00:09→21:08)
[2020-04-01] MEDS: METRONIDAZOLE 500 MG PREMIX 100 ML IV SCH ×2 (06:08→17:46)
[2020-04-01] MEDS: CEFTRIAXONE 1,000 MG in DEXTROSE 5% WATER 50 ML IV SCH (08:10)
[2020-04-01] MEDS: PANTOPRAZOLE SODIUM 40 MG/VIAL IV SCH (08:10)
[2020-04-01] MEDS: CALCIUM ACETATE 667MG CAPSULE PO SCH ×3 (08:11→17:46)
[2020-04-01 16:09] LABS: HEMATOCRIT. 29.6 % (36.0-48.0); HEMOGLOBIN. 9.7 g/dL (12.0-16.0); MEAN CORPUSCULAR HEMOGLOBIN 29.1 pg (28.0-32.0); MEAN CORPUSCULAR VOLUME 88.9 fL (81.0-99.0); MEAN PLATELET VOLUME 8.6 fl (7.4-10.4); PLATELET 171 x1000/uL (130-400); RED BLOOD CELL COUNT 3.33 mill/uL (4.2-5.4); RED CELL DISTRIBUTION WIDTH 16.5 % (11.6-14.6)
[2020-04-01 18:26] LABS: PLATELET ESTIMATE NORMAL
[2020-04-02] VITALS (13 sets, daily range): BP systolic 132–169; BP diastolic 65–97
[2020-04-02] MEDS: HYDROCORTISONE SOD SUCCINATE 100 MG/2 ML VIAL IV SCH (01:11)
[2020-04-02 06:30] LABS: HEMATOCRIT. 29.8 % (36.0-48.0); HEMOGLOBIN. 9.6 g/dL (12.0-16.0); MEAN CORPUSCULAR HEMOGLOBIN 28.9 pg (28.0-32.0); MEAN CORPUSCULAR VOLUME 89.4 fL (81.0-99.0); MEAN PLATELET VOLUME 8.6 fl (7.4-10.4); PLATELET 140 x1000/uL (130-400); RED BLOOD CELL COUNT 3.34 mill/uL (4.2-5.4); RED CELL DISTRIBUTION WIDTH 16.2 % (11.6-14.6)
[2020-04-02] MEDS ORDERED: CALCIUM GLUCONATE 100MG/ML 10ML VIAL IV NR (09:00)
[2020-04-02] MEDS: CALCIUM ACETATE 667MG CAPSULE PO SCH ×3 (09:10→17:16)
[2020-04-02] MEDS: PANTOPRAZOLE SODIUM 40 MG/VIAL IV SCH (09:10)
[2020-04-02 10:33] LABS: PLATELET ESTIMATE NORMAL
[2020-04-02] MEDS ORDERED: KCL 20MEQ/100ML PREMIX 100 ML IV NR (13:00)
[2020-04-02] MEDS ORDERED: METR500T MT (13:12)
[2020-04-02] MEDS ORDERED: LEVO500T2 PO (13:16)
[2020-04-02] MEDS ORDERED: CEFTRIAXONE 1,000 MG in DEXTROSE 5% WATER 50 ML IV SCH (14:00)
[2020-04-02] MEDS ORDERED: METRONIDAZOLE 500 MG PREMIX 100 ML IV SCH (15:00)
[2020-04-02] MEDS: HYDRALAZINE 20MG/ML VIAL IV PRN (17:17)
[2020-04-02] MEDS ORDERED: CALC667C PO (18:55)
[2020-04-03] VITALS: BP 160/106
[2020-04-03] MEDS: HYDROCORTISONE SOD SUCCINATE 100 MG/2 ML VIAL IV SCH (00:14)
[2020-04-03 02:00] VITALS: BP 123/71
[2020-04-03 04:00] VITALS: BP 143/87
[2020-04-03 06:00] VITALS: BP 142/78
[2020-04-03] MEDS ORDERED: METRONIDAZOLE 500 MG PREMIX 100 ML IV SCH (06:00)
[2020-04-03 07:05] LABS: HEMATOCRIT. 25.2 % (36.0-48.0); HEMOGLOBIN. 8.1 g/dL (12.0-16.0); MEAN CORPUSCULAR HEMOGLOBIN 28.7 pg (28.0-32.0); MEAN CORPUSCULAR VOLUME 89.9 fL (81.0-99.0); MEAN PLATELET VOLUME 9.3 fl (7.4-10.4); PLATELET 130 x1000/uL (130-400); RED BLOOD CELL COUNT 2.81 mill/uL (4.2-5.4); RED CELL DISTRIBUTION WIDTH 16.3 % (11.6-14.6)
[2020-04-03 08:00] VITALS: BP 142/83
[2020-04-03] MEDS: PANTOPRAZOLE SODIUM 40 MG/VIAL IV SCH (09:11)
[2020-04-03] MEDS: CALCIUM ACETATE 667MG CAPSULE PO SCH (09:11)
[2020-04-03 10:00] VITALS: BP 155/68
[2020-04-03] MEDS ORDERED: POTASSIUM CHLORIDE 20MEQ TABLET SR PO SCH (10:15)
[2020-04-03 21:59] LABS: PLATELET ESTIMATE NORMAL
== END 2020-04-03 11:00 | disposition home health service (06) | DRG 871 ==
LOC: ER 14:11 → ENRESERV 20:06 → 5EST 22:07
PROVIDERS: ADMIT Family Medicine; ATTEND Family Medicine
PROC: 30233N1 Transfusion of Nonautologous Red Blood Cells into Peripheral Vein, Percutaneous Approach (ICD-10-PCS; principal; 2020-03-28)
DX: A41.9 Sepsis, unspecified organism (principal); N17.0 Acute kidney failure with tubular necrosis; N18.6 End stage renal disease; K85.90 Acute pancreatitis without necrosis or infection, unspecified; E44.0 Moderate protein-calorie malnutrition; E87.1 Hypo-osmolality and hyponatremia; N13.6 Pyonephrosis; I12.0 Hypertensive chronic kidney disease with stage 5 chronic kidney disease or end stage renal disease; E87.2 Acidosis; I47.1 Supraventricular tachycardia; K57.20 Diverticulitis of large intestine with perforation and abscess without bleeding; D64.9 Anemia, unspecified; K52.89 Other specified noninfective gastroenteritis and colitis; R59.0 Localized enlarged lymph nodes; Z53.29 Procedure and treatment not carried out because of patient's decision for other reasons; E87.5 Hyperkalemia; M32.9 Systemic lupus erythematosus, unspecified; R74.8 Abnormal levels of other serum enzymes; D69.6 Thrombocytopenia, unspecified; K52.9 Noninfective gastroenteritis and colitis, unspecified; M06.9 Rheumatoid arthritis, unspecified; E83.51 Hypocalcemia; E83.39 Other disorders of phosphorus metabolism; I25.2 Old myocardial infarction; Z87.11 Personal history of peptic ulcer disease; Z87.442 Personal history of urinary calculi; Z68.22 Body mass index [BMI] 22.0-22.9, adult
CPT/HCPCS: 36415; 71045; 74176; 80048; 80053; 80061; 81003; 82040; 82270; 82330; 82550; 82553; 82575; 82962; 83036; 83735; 83880; 83970; 84100; 84132; 84439; 84443; 84484; 85025; 85379; 86850; 86900; 86920; 93005; 93306; 94644; 96365; 97162; 99291; C9113; J0360; J0610; J0696; J1720; J1956; J2270; J2405; J3480; J3490; J7030; J7060; P9016